=== PATIENT | male | born 1945 | race Caucasian/White ===

== ENCOUNTER → 2016-12-17 | Outpatient (REF) | payer OTHER ==
[2016-12-17 14:45] LABS: BASO % 0.8 % (0.0-1.0); EOS # 0.3 K/mm3 (0.0-0.50); EOS % 5.4 % (0.0-3.0); LARGE UNSTAINED CELL # 0.1 K/mm3 (0.0-0.4); LARGE UNSTAINED CELL % 1.8 % (0.0-4.0); LYMPH # 1.4 K/mm3 (1.5-4.5); LYMPH % 21.4 % (24.0-44.0); MEAN CORPUSCULAR HEMOGLOBIN 33.1 pg (27.0-33.0); MEAN CORPUSCULAR HGB CONC 35.3 g/dl (32.0-36.5); MEAN CORPUSCULAR VOLUME 93.8 fl (80.0-96.0); MONO # 0.4 K/mm3 (0.0-0.8); MONO % 6.1 % (0.0-5.0); NEUTROPHILS # 3.9 K/mm3 (1.8-7.7); NEUTROPHILS % 64.5 % (36.0-66.0); PLATELET COUNT, AUTOMATED 238 k/mm3 (150-450); RED CELL DISTRIBUTION WIDTH 12.7 % (11.5-14.5); WHITE BLOOD COUNT 6.1 K/mm3 (4.0-10.0)
[2016-12-17 14:58] LABS: ALBUMIN 3.7 GM/DL (3.2-5.2); ALBUMIN/GLOBULIN RATIO 1.03 (1.00-1.93); ALKALINE PHOSPHATASE 56 U/L (45-117); ALT/SGPT 19 U/L (12-78); ANION GAP 8 MEQ/L (8-16); AST/SGOT 9 U/L (15-37); BILIRUBIN,TOTAL 0.4 MG/DL (0.2-1.0); BLOOD UREA NITROGEN 17 MG/DL (7-18); CALCIUM LEVEL 9.2 MG/DL (8.8-10.2); CARBON DIOXIDE LEVEL 27 MEQ/L (21-32); CHLORIDE LEVEL 103 MEQ/L (98-107); CREATININE FOR GFR 1.43 MG/DL (0.70-1.30); GLOMERULAR FILTRATION RATE 51.9 (>42); POTASSIUM SERUM 4.6 MEQ/L (3.5-5.1); SODIUM LEVEL 138 MEQ/L (136-145); TOTAL PROTEIN 7.3 GM/DL (6.4-8.2)
[2016-12-17 14:59] LABS: GLUCOSE, FASTING 402 MG/DL (83-110)
[2016-12-17 15:53] LABS: ERYTHROCYTE SEDIMENTATION RATE 34 mm/hr (0-20)
== END ==
LOC: M LABNEURO 09:07
PROVIDERS: ATTEND Psychiatry & Neurology Neurology
DX: G43.909 Migraine, unspecified, not intractable, without status migrainosus (principal)

== ENCOUNTER → 2017-01-13 | Outpatient (CLI) | payer OTHER ==
[~2017-01-13] MED LIST: ISOVUE-370 76% 100ML VIAL (Q9967) As Ordered ONE
--- NOTE | 2017-01-13 10:32 | REP ---
CT BRAIN WITHOUT AND WITH CONTRAST: 01/13/2017. No prior study. 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 Technique: Noncontrast scan performed followed by a bolus of 75 ml Isovue 370. Rescanning through the brain performed. Findings: The lateral ventricles are midline, symmetric and without dilatation or displacement. Third and fourth ventricles intact. There are heterogeneous white matter changes bilaterally suggesting small vessel white matter ischemic change of aging. Minor atrophy with proportionate ventricular size noted bilaterally, greatest in the frontal and temporal lobes. There is atrophy in the cerebellum as well. No vascular territory infarct, hemorrhage, mass or mass effect. Brainstem was intact. The skull base show mastoids fairly symmetric with the sinuses clear, however there is a midline, expansile lytic occipital hyperdense lesion with sharply circumscribed margins. It has a transverse diameter of 4.1 cm by AP diameter 2.9 cm by 3.8 cm vertical diameter. It is hyperdense with some hypodense areas within it on the enhanced images. It is difficult to discern true enhancement of most of the lesion although its margins do appear somewhat hyperdense on the enhanced images. There are areas of the thinned cortex remaining, other areas where the cortex is destroyed. Remainder of the calvarium and skull base are unremarkable. Impression: 1. There is lytic expansile occipital skull lesion in the midline posteriorly which is hyperdense, slightly heterogeneous and with loss of cortical margins for a portion of it. I do not see other skull lesions. Findings may reflect eosinophilic granuloma, plasmacytoma, metastatic lesion, or osteomyelitis along with other possibilities. 2. No other destructive lesions in the skull and with diffuse moderate atrophy with proportionate ventriculomegaly. 3. White matter tract low density changes likely small vessel ischemic pattern. No vascular territory infarct, edema or parenchymal brain mass. Signed by Quan Matos MD 01/13/2017 03:46 P
== END ==
LOC: M RAD 08:48
PROVIDERS: ATTEND Psychiatry & Neurology Neurology
DX: D16.4 Benign neoplasm of bones of skull and face (principal)
CPT/HCPCS: 70470; Q9967

== ENCOUNTER → 2017-03-26 | Outpatient (REF) | payer OTHER ==
[2017-03-26 18:45] LABS: ALBUMIN 3.1 GM/DL (3.2-5.2); ALBUMIN/GLOBULIN RATIO 0.94 (1.00-1.93); BILIRUBIN,TOTAL 0.4 MG/DL (0.2-1.0); CALCIUM LEVEL 8.7 MG/DL (8.8-10.2); CREATININE FOR GFR 1.38 MG/DL (0.70-1.30); GLOMERULAR FILTRATION RATE 53.9 (>42); TOTAL PROTEIN 6.4 GM/DL (6.4-8.2)
[2017-03-26 18:48] LABS: BASO # 0.1 10^3/uL (0.0-0.2); BASO % 1.1 % (0.0-1.0); EOS # 0.3 10^3/uL (0.0-0.50); EOS % 5.5 % (0.0-3.0); IMMATURE GRANULOCYTE % 0.4 % (0-0); LYMPH # 1.4 10^3/uL (1.5-4.5); LYMPH % 25.4 % (24.0-44.0); MEAN CORPUSCULAR HEMOGLOBIN 31.8 pg (27.0-33.0); MEAN CORPUSCULAR VOLUME 93.6 fl (80.0-96.0); MONO # 0.6 10^3/uL (0.0-0.8); MONO % 10.2 % (0.0-5.0); NEUTROPHILS # 3.3 10^3/uL (1.8-7.7); NEUTROPHILS % 57.4 % (36.0-66.0); PLATELET COUNT, AUTOMATED 233 10^3/uL (150-450); RED CELL DISTRIBUTION WIDTH 11.9 % (11.5-14.5); WHITE BLOOD COUNT 5.7 10^3/uL (4.0-10.0)
== END ==
LOC: M LABNEURO 17:11
PROVIDERS: ATTEND Psychiatry & Neurology Neurology
DX: G43.909 Migraine, unspecified, not intractable, without status migrainosus (principal); Z13.29 Encounter for screening for other suspected endocrine disorder; Z79.899 Other long term (current) drug therapy

== ENCOUNTER → 2017-04-02 | Outpatient (CLI) | payer OTHER ==
--- NOTE | 2017-04-02 11:19 | REP ---
Clinical: Spondylosis. Technique: AP, lateral, flexion/extension, swimmer's, open-mouth, and oblique views of the cervical spine. Findings: 2 mm of anterolisthesis at the C3-4 level on flexion is appreciated. Alignment and lordosis is otherwise maintained. Advanced to marked multilevel degenerative disc osteophyte complexes are appreciated including marginal bridging osteophytes, endplate sclerosis and disc space narrowing. Findings are most pronounced at the C5-6 and C6-7 levels. Open mouth view demonstrates normal C1-C2 articulation and odontoid process. Oblique views cannot exclude narrowing to neural foramen at the C4-5 level. There is no evidence for acute fracture / compression injury or subluxation Impression: Advanced multilevel degenerative changes as noted above including 2 mm of anterolisthesis at the C3-4 level on flexion. Signed by Lei Mroeno MD 04/02/2017 11:11 A
== END ==
LOC: M RAD 10:45
PROVIDERS: ATTEND Neurological Surgery
DX: M47.892 Other spondylosis, cervical region (principal)

== ENCOUNTER → 2018-11-17 | Outpatient (CLI) | payer MEDICARE ==
[~2018-11-17] MED LIST changes: +CONRAY-43 43% 50ML VIAL (Q9960) As Ordered ONE; -ISOVUE-370 76% 100ML VIAL (Q9967) As Ordered ONE; +PROHANCE 279.3MG/ML 5ML VIAL (A9576) As Ordered ONE
--- NOTE | 2018-11-17 09:30 | REP ---
MRI RIGHT SHOULDER: MRI right shoulder is performed. Patient was scheduled for MR arthrogram but could not tolerate full imaging sequences due to pain. Only pre-arthrogram axial and coronal oblique images are performed. Supraspinatus tendon demonstrates increases signal on T2-weighted images extending through portions of the tendon, without definite extension through the full thickness of the tendon consistent with tendinopathy and partial thickness tearing, particularly in the subacromial region. There appears to be mild to moderate subscapularis tendinopathy. There are mild to moderate hypertrophic degenerative changes of the acromioclavicular joint. Biceps tendon is within the bicipital groove with mild surrounding fluid and possible tenosynovitis. There is no Hill-Sachs deformity. There is mild edema in the lateral deltoid muscle possibly representing a strain. There is fraying of the biceps labral complex. Superior labrum also appears frayed. Anterior labrum also appears frayed. No definite full-thickness labral tear is seen. There is mild chondromalacia of the glenohumeral joint. There is no bone marrow edema or occult fracture. There is a small joint effusion. IMPRESSION: Limited exam as discussed above, patient was scheduled for MR arthrography but could not tolerate the required imaging sequences due to pain. Arthrogram was not performed. The pre-arthrogram images obtained show tendinopathy of the supraspinatus tendon with a partial tear of the subacromial region. There is subscapularis tendinopathy. There are mild to moderate hypertrophic degenerative changes of the acromioclavicular joint. Mild fluid surrounding the biceps tendon may represent mild tenosynovitis. Mild edema in the lateral deltoid muscle may represent a muscle strain. There is fraying of the biceps labral complex and superior labrum, as well as anterior labrum. Electronically Signed by Noam Cardoza MD 11/17/2018 05:27 P
== END ==
LOC: M RADPRO 06:27
PROVIDERS: ATTEND Physician Assistant Surgical
DX: M19.011 Primary osteoarthritis, right shoulder (principal); M75.31 Calcific tendinitis of right shoulder

== ENCOUNTER → 2022-02-28 | Outpatient (REF) | payer MEDICARE ==
[2022-02-28 19:19] LABS: CREATININE,RANDOM URINE 70.7 MG/DL; TOTAL PROTEIN,RANDOM URINE 166.2 MG/DL (0.0-12.0)
[2022-02-28 19:24] LABS: PERCENT SATURATION 23.9 % (19.7-50.0)
== END ==
LOC: M LAB REF 17:20
PROVIDERS: ATTEND Internal Medicine Nephrology
DX: E11.21 Type 2 diabetes mellitus with diabetic nephropathy (principal); D63.1 Anemia in chronic kidney disease; N18.9 Chronic kidney disease, unspecified

== ENCOUNTER → 2022-04-26 | Outpatient (REF) | payer MEDICARE ==
[2022-04-26 15:21] LABS: APPEARANCE, URINE MANUAL CLOUDY (CLEAR); BILIRUBIN, URINE MANUAL NEGATIVE (NEGATIVE); COLOR, URINE MANUAL YELLOW (YELLOW); GLUCOSE, URINE (UA) MANUAL 1+(100 MG/DL) mg/dL (NEGATIVE); KETONE, URINE MANUAL NEGATIVE (NEGATIVE); LEUKOCYTE ESTERASE, URINE MAN POSITIVE (NEGATIVE); PROTEIN, URINE MANUAL 2+ mg/dL (NEGATIVE); SPECIFIC GRAVITY,URINE MANUAL 1.015 (1.002-1.035); UROBILINOGEN, URINE MANUAL NORMAL (NORMAL)
[2022-04-26 15:22] LABS: BLOOD URINE MANUAL POSITIVE (NEGATIVE); NITRITE, URINE MANUAL NEGATIVE (NEGATIVE)
[2022-04-26 16:03] LABS: WBC, URINE TNTC /hpf (0-3)
[2022-04-26 16:04] LABS: BACTERIA, URINE MOD AMOUNT; RBC, URINE NONE SEEN /hpf (0-3); SQUAMOUS EPITHELIAL CELL URINE NONE SEEN /hpf (SMALL AMT)
== END ==
LOC: M SMT 13:13
PROVIDERS: ATTEND Nurse Practitioner Women's Health
DX: R31.29 Other microscopic hematuria (principal)

== ENCOUNTER → 2023-09-10 | Outpatient (REF) | payer MEDICARE, MEDICAID ==
[2023-09-10 15:44] LABS: PERCENT SATURATION 25.5 % (19.7-50.0)
[2023-09-10 15:46] LABS: FERRITIN 337.4 NG/ML (10.5-307.3)
== END ==
LOC: M LAB REF 13:17
PROVIDERS: ATTEND Internal Medicine Nephrology
DX: N18.32 Chronic kidney disease, stage 3b (principal); D63.1 Anemia in chronic kidney disease

== ENCOUNTER → 2024-07-28 | Outpatient (REF) | payer MEDICARE, MEDICAID ==
[2024-07-28 17:48] LABS: PERCENT SATURATION 27.3 % (19.7-50.0)
[2024-07-28 17:49] LABS: FOLATE 10.6 NG/ML (>5.4)
== END ==
LOC: M LAB REF 17:11
PROVIDERS: ATTEND Internal Medicine Nephrology
DX: N18.9 Chronic kidney disease, unspecified (principal); D63.1 Anemia in chronic kidney disease

== ENCOUNTER 2024-09-19 11:05 | Emergency (ER) | payer MEDICARE, MEDICAID ==
[~2024-09-19] VITALS: Ht 167.6 cm; Wt 76.6 kg
[2024-09-19 11:42] LABS: BASO # 0.1 10^3/uL (0.0-0.2); BASO % 0.5 % (0.0-1.0); EOS # 0.5 10^3/uL (0.0-0.5); EOS % 3.4 % (0.0-3.0); HEMATOCRIT 30.6 % (42.0-52.0); HEMOGLOBIN 9.8 g/dl (13.5-17.5); LYMPH # 0.9 10^3/uL (1.5-5.0); LYMPH % 5.6 % (24.0-44.0); MEAN CORPUSCULAR HEMOGLOBIN 33.7 pg (27.0-33.0); MEAN CORPUSCULAR VOLUME 105.2 fl (80.0-96.0); MONO # 1.1 10^3/uL (0.0-0.8); MONO % 6.9 % (2.0-8.0); NEUTROPHILS # 13.2 10^3/uL (1.5-8.5); PLATELET COUNT, AUTOMATED 213 10^3/uL (150-450); RED BLOOD COUNT 2.91 10^6/uL (4.30-6.10); WHITE BLOOD COUNT 15.8 10^3/uL (4.0-10.0)
[2024-09-19 11:54] LABS: PROTHROMBIN TIME 13.5 SECONDS (12.5-14.5)
[2024-09-19 12:13] LABS: CK-MB VALUE MASS 68.4 NG/ML (<3.6)
[2024-09-19 12:30] LABS: ALBUMIN 2.3 G/DL (3.2-5.2); BILIRUBIN,DIRECT 0.3 MG/DL (<0.4); BILIRUBIN,TOTAL 0.5 MG/DL (0.3-1.2); CALCIUM LEVEL 7.6 MG/DL (8.3-10.6); CREATININE FOR GFR 5.45 MG/DL (0.70-1.30); POTASSIUM SERUM 5.3 MMOL/L (3.5-5.1); TOTAL PROTEIN 5.4 G/DL (5.7-8.2)
[2024-09-19 12:33] LABS: MB/CK RELATIVE INDEX 0.33 (< OR =4)
[2024-09-19 13:19] LABS: CK-MB VALUE MASS 65.5 NG/ML (<3.6)
[2024-09-19 13:38] LABS: MB/CK RELATIVE INDEX 0.37 (< OR =4)
[2024-09-19] MEDS: CALCIUM GLUCONATE 1,000 MG in DEXTROSE 5% (D5W) MINI-BAG PLU 100 ML IV ONE (13:43)
[2024-09-19] MEDS: HumuLIN R (REGULAR) INSULIN (NovoLIN R) **100U/ML** PER UNIT IV ONE (13:43)
[2024-09-19] MEDS: DEXTROSE 50% 50ML SYRINGE IV STA (13:43)
[2024-09-19] MEDS: FUROSEMIDE 40MG/4ML VIAL IV ONE (15:49)
[2024-09-19 18:15] VITALS: TEMP 97.4; O2SAT 98
[2024-09-19 18:25] VITALS: BP 134/58
== END 2024-09-19 18:26 | disposition short-term general hospital (02) ==
LOC: M ED 11:05
DX: I21.4 Non-ST elevation (NSTEMI) myocardial infarction (principal); E87.70 Fluid overload, unspecified; E87.5 Hyperkalemia; M62.82 Rhabdomyolysis; I44.1 Atrioventricular block, second degree; I25.10 Atherosclerotic heart disease of native coronary artery without angina pectoris; E11.9 Type 2 diabetes mellitus without complications; I10 Essential (primary) hypertension; D64.9 Anemia, unspecified; Z95.1 Presence of aortocoronary bypass graft; Z99.2 Dependence on renal dialysis; Z95.5 Presence of coronary angioplasty implant and graft; Z96.619 Presence of unspecified artificial shoulder joint; Z79.4 Long term (current) use of insulin
CPT/HCPCS: 71045; 80047; 80048; 80076; 82550; 82553; 83690; 84484; 85025; 85610; 93005; 93041; 93970; 94760; 96374; 96375; 99285; J0612; J1815; J1938